=== PATIENT | male | born 1940 | race Caucasian/White ===

== ENCOUNTER 2017-03-07 16:42 | Emergency (ER) | payer MEDICARE, OTHER ==
--- NOTE | 2017-03-07 17:11 | ERNOTE ---
<LauraIldefonso - Last Filed: 03/07/17 19:16> Medical Problem HPI - Narrative Date of Service: 03/07/17 - General Chief Complaint: General Assessment Time Seen by Provider: 03/07/17 17:00 Source: patient, family Exam Limitations: no limitations - Immun/Allergies/Home Medications Allergies/Adverse Reactions: Allergies No Known Allergies Allergy (Verified 03/07/17 16:55) Home Medications: HOME MEDICATIONS Ferrous Sulfate 325 mg PO DAILY #30 tablet 03/07/17 [Last Taken Unknown] - History of Present History Narrative: Patient presents for progressive bilateral leg weakness. This has been progressive over several months but he also has been having progressive generalized weakness. He has had some constipation and took laxative and subsequently has been having some lose stool, no blood noted. No CP or SOB. No acute abdominal pain. He is more fatigued. His wonders if it is stress. He recently saw the Neurolgist for his leg weakness without clear cause Timing: constant, getting worse Severity: moderate Modifying Factors - (Improves): Present: rest Modifying Factors - (Worsens): Present: other - exertion Review of Systems - Review of Systems Constitutional: Absent: fever ENT: Absent: sore throat Respiratory: Absent: shortness of breath Cardiology: Absent: chest pain Gastrointestinal/Abdominal: Present: See HPI Genitourinary: Absent: dysuria Neurological: Present: See HPI All Other Systems: All systems neg except as marked - Patient's Past Medical History Patient History - Medical: No pertinent hx Patient History - Cardiac/Respiratory: No pertinent hx Patient History - Cancer: No Hx of Cancer Patient History - Surgical Procedures: Colonoscopy, Orthopedic Patient History - Other: None - Social History Living Situations: home Psych History: No pertinent hx Physical Exam - Physical Exam General Appearance: Present: alert, no apparent distress Head Exam: Present: normal inspection, no evidence of injury Eye Exam: Normal inspection: bilateral, PERRL: bilateral Ears, Nose, Throat: Present: normal ENT inspection Neck: Present: normal inspection Respiratory: Present: no respiratory distress, normal breath sounds, no accessory muscle use, lungs clear Cardiovascular/Chest: Present: regular rate, rhythm, normal peripheral pulses Gastrointestinal/Abdominal: Present: normal bowel sounds, nontender, nondistended, soft Rectal Exam: Absent: black stool, mass Extremity Exam: Present: normal inspection Neurological Exam: Present: alert, normal mood/affect, no motor/sensory deficits , 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 Absent: motor weakness Skin Exam: Present: normal color, warm/dry ED Progress - Results and Orders Patient's Lab Results:: I have reviewed the patient's lab results. - Vital Signs Patient's Vital Signs:: I have reviewed the patient's vital signs. Vital Signs: Vital Signs 03/07/17 16:47 Temperature 37.5 C Pulse Rate 60 Respiratory 16 Rate Blood Pressure 149/67 O2 Sat by Pulse 99 Oximetry - EKG EKG: NSR EKG read: Interp. by me EKG Comments: NSR rate 59. Non-specific changes, no STEMI. - X-Ray X-Ray #1 X-Ray: chest Interpretation: Interp. by me X-ray Comments: I reviewed CXR report per radiology - Progress/Reassessment Chief Complaint: General Assessment Progress Note-Subjective: 03/07/17 19:21 I spoke with the Hospitalist. They recommend IV fluids and repeat H&H. No gross blood in STACY. Pt agreeable. - Transfer of Care Physician Sign Out: Ildefonso Sanchez Receiving Physician: Buddy Goss Pending Results: Labs Departure - Departure Clinical Impression: Weakness Anemia Qualifiers: Anemia type: iron deficiency Iron deficiency anemia type: chronic blood loss Qualified Code(s): D50.0 - Iron deficiency anemia secondary to blood loss ( chronic) Constipation Qualifiers: Constipation type: slow transit constipation Qualified Code(s): K59.01 - Slow transit constipation Disposition: Home Follow Up Needed Condition: Stable Instructions: Anemia, Nonspecific Additional Instructions: try miralax one scoop daily in 8-10 ounces of water and adjust dose to have a soft formed stool daily. Take iron daily and follow up with Dr. Bazzi to follow up on your blood counts and have further work up on your anemia. Referrals: Siva Bazzi MD [Primary Care Provider] - Prescriptions: Ferrous Sulfate 325 mg PO DAILY #30 tablet <Buddy Goss - Last Filed: 03/13/17 22:45> ED Progress - Results and Orders Patient's Lab Results:: I have reviewed the patient's lab results. Results and Orders: Laboratory Tests 03/07/17 03/07/1703/07/17 17:18 17:18 18:37 WBC 4.9 Hgb 8.3 L Hct 28.5 L Plt Count 252 Sodium 140 Potassium 3.9 Chloride 105 Carbon Dioxide 24.1 BUN 13 Creatinine 1.16 Random Glucose 89 Calcium 8.5 Total Bilirubin 0.2 AST 19 ALT 26 Alkaline Phosphatase 108 Troponin I Less than 0.017 Total Protein 7.4 Albumin 3.0 L Lipase 152 Urine Color Urine Appearance Urine pH Ur Specific [place] Urine Protein Urine Glucose (UA) Urine Ketones Urine Blood Urine Nitrate Urine Bilirubin Urine Urobilinogen Ur Leukocyte Esterase Urine RBC Urine WBC Ur Epithelial Cells Urine Bacteria Urine Culture Comments Stool Occult Blood Positive H 03/07/17 03/07/17 18:58 21:08 WBC Hgb 8.3 L Hct 29.0 L Plt Count Sodium Potassium Chloride Carbon Dioxide BUN Creatinine Random Glucose Calcium Total Bilirubin AST ALT Alkaline Phosphatase Troponin I Total Protein Albumin Lipase Urine Color Yellow Urine Appearance Clear Urine pH 5.5 Ur Specific [place] <=1.005 Urine Protein Negative Urine Glucose (UA) Negative Urine Ketones Negative Urine Blood 25 H Urine Nitrate Negative Urine Bilirubin Negative Urine Urobilinogen Normal Ur Leukocyte Esterase 25 H Urine RBC 0-5 Urine WBC 0-5 Ur Epithelial Cells None seen Urine Bacteria Trace Urine Culture Comments Culture to follow Stool Occult Blood - Vital Signs Patient's Vital Signs:: I have reviewed the patient's vital signs. Vital Signs: Vital Signs 03/07/17 03/07/17 03/07/17 16:47 17:49 18:04 Temperature 37.5 C Pulse Rate 60 57 L 57 L Respiratory 16 16 16 Rate Blood Pressure 149/67 146/71 O2 Sat by Pulse 99 100 100 Oximetry 03/07/17 03/07/17 18:14 18:40 Temperature 36.8 C Pulse Rate 54 L 65 Respiratory 16 Rate Blood Pressure 146/71 O2 Sat by Pulse 100 Oximetry - Progress/Reassessment Progress Note-Subjective: 03/07/17 23:39 Spoke with the patient about stable lab values and need for OP evaluation
[2017-03-07 17:22] LABS: Hematocrit 28.5 % (42.0-52.0); Hemoglobin 8.3 gm/dL (13.5-18.0); Mean Cell Volume 67.5 fl (78-100); Mean Corpuscular Hemoglobin 19.7 pg (27-31); Mean Corpuscular Hgb Conc 29.1 g/dl (32-36); Mean Platelet Volume 9.6 fl (6.0-9.5); Neutrophil # 3.5 K/mm3 (1.3-6.0); Platelet Count 252 K/mm3 (150-450); Red Blood Count 4.22 M/mm3 (4.7-6.0); Red Cell Distribution Width 16.6 % (11.5-14.0); White Blood Count 4.9 K/mm3 (4.0-10.5)
[2017-03-07 17:49] LABS: ALT 26 U/L (19-67); AST 19 U/L (0-48); Alkaline Phosphatase * 108 U/L (50-170); Anion Gap 14.8 mmol/L (6.8-13.8); BUN/Creatinine Ratio 11.2 (9.0-21.6); Bilirubin, Total 0.2 mg/dL (0.0-1.1); Blood Urea Nitrogen 13 mg/dL (6-23); Calcium * 8.5 mg/dL (7.9-10.9); Carbon Dioxide 24.1 mmol/L (24-32.6); Chloride 105 mmol/L (97-106); Glucose * 89 mg/dL (70-110); Lipase 152 U/L (73-393); Potassium 3.9 mmol/L (3.4-4.6); Sodium 140 mmol/L (132-142); Total Protein 7.4 gm/dL (6.2-8.2); Troponin I Less than 0.017 ng/ml (0.00-0.10)
[2017-03-07 19:11] LABS: Urine Bilirubin Negative (NEGATIVE); Urine Blood 25 /ul (NEGATIVE); Urine Ketone Negative (NEGATIVE); Urine Nitrite Negative (NEGATIVE); Urine Protein Negative (NEGATIVE); Urine Specific Gravity <=1.005 SP.GR. (1.005-1.030); Urine Urobilinogen Normal (NORMAL); Urine pH 5.5 pH (5.0-7.0)
[2017-03-07] MEDS ORDERED: NORMAL SALINE 1,000 ML IV ONE (19:12)
[2017-03-07 19:21] LABS: Urine Appearance Clear; Urine Color Yellow
[2017-03-07 19:22] LABS: Urine Bacteria TRACE; Urine RBC 0-5 /hpf (0-5); Urine WBC 0-5 /hpf (0-5)
[2017-03-07 22:10] LABS: Hemoglobin 8.3 gm/dL (13.5-18.0)
[2017-03-07 23:30] VITALS: BP 144/72
== END 2017-03-07 23:50 | disposition home or self-care (01) ==
LOC: ER 16:42
DX: R53.1 Weakness (principal); D50.0 Iron deficiency anemia secondary to blood loss (chronic); K59.01 Slow transit constipation

== ENCOUNTER 2017-03-21 09:25 | Day surgery (SDC) | payer MEDICARE, OTHER ==
[~2017-03-21 09:25] MED LIST: RINGER'S SOLUTION,LACTATED 1,000 ML IV PRN
[2017-03-21] MEDS ORDERED: RINGER'S SOLUTION,LACTATED 1,000 ML IV ONE ×2 (10:08→12:10)
[2017-03-21] MEDS ORDERED: RINGER'S SOLUTION,LACTATED 1,000 ML IV PRN (12:27)
[2017-03-21 13:21] VITALS: BP 146/77
--- NOTE | 2017-03-21 19:10 | OR ---
Operative Report - Dictated Report Narrative: OPERATIVE REPORT DATE OF OPERATION: 03/21/2017 PREOPERATIVE DIAGNOSIS: Anemia POSTOPERATIVE DIAGNOSIS: Gastropathy with small benign appearing gastric ulcer (pathology and CLOtest pending) 3-5mm colon polyps at 105 cm, 130 cm, 95 cm, and 85 cm 3 (pathology pending) Large cecal tumor (pathology pending) OPERATION: Colonoscopy with biopsy of cecal tumor and hot forceps polypectomies 6 SURGEON: Jasbir Frye MD ANESTHESIA: JONATHAN Cortes CRNA INDICATIONS FOR PROCEDURE: The patient is a 76-year-old male referred by Dr Hagen. The patient recently presented to the emergency room with weakness, and he was found to have a drop in hemoglobin from 16 g in April 2016 to 8.3 g currently. There was lab evidence of iron deficiency. The patient has a history of 3 tubular adenomas removed on colonoscopy in 2006 at [facility]. He had a series of 2 colonoscopies in 2013 at the [facility] in [place]. 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 A subsequent colonoscopy later that year was reportedly normal. He has had some constipation but denies abdominal pain. FINDINGS: Area of benign appearing gastropathy with healing 2 mm ulcer ( pathology and CLOtest pending). Large cecal tumor with central necrosis and evidence of previous bleeding. 3-5mm areas of polypoid change at 105 cm, 130 cm , 95 cm, and 85 cm 3 (pathology pending) NARRATIVE OF PROCEDURE: The patient was identified in the holding area, and prior to the administration of anesthetic, a multidisciplinary timeout was observed. With the patient in the left lateral position and after the administration of intravenous sedation, the perineum was inspected. There was no evidence of pilonidal disease or skin breakdown. The external appearance of the anus was normal. Sphincter tone was good. The flexible fiberoptic colonoscope was inserted into the rectum which was insufflated with air. The rectal mucosa and submucosal vascular pattern appeared normal, the prep was seen to be complete. The scope was advanced through the sigmoid colon, up the descending colon, and around the splenic flexure where the triangular haustral architecture of the transverse colon was seen. The scope was advanced across the transverse colon, around the hepatic flexure to the cecum, where a large flat polypoid mass with central necrosis was identified. This had the gross appearance of adenocarcinoma. Biopsies were obtained. The area appeared hemostatic. The scope was then slowly withdrawn in a circular fashion so that all aspects of colonic mucosa were inspected. The colon was relatively normal in course and caliber. The haustral architecture appeared well preserved throughout with no evidence of external compression. The mucosa and submucosal vascular pattern appeared normal, specifically there was no gross evidence to suggest colitis or inflammatory bowel disease and no AV malformations were seen. There were several small diverticular openings identified. 3-5mm polyps were encountered at 105 cm, 130 cm, 95 cm, and 85 cm 3. These were biopsied and then thoroughly destroyed with electrocautery. All polypectomy sites were observed to be complete and hemostatic. The scope was gradually withdrawn to the level of the rectum. As much insufflated air as possible was removed. The scope was withdrawn from the patient and the procedure terminated. The patient tolerated the anesthetic and procedure well without complication and was transferred back to the ambulatory surgery area awake and in stable condition. The patient remained stable throughout a period of postoperative observation. He denied abdominal discomfort, was able to tolerate by mouth intake, and was up without assistance. I shared the operative findings with the patient and his , and he was given copies of the photographs which appear in the medical record. He was discharged home with instructions not to engage in hazardous activity today, but may resume normal activity tomorrow, and advance diet as tolerated. He is to continue those medications as listed in the history and physical exam. I made arrangements to contact him with the biopsy reports and will make additional recommendations for treatment and follow-up based upon those results. I did explain that the lesion in the cecum is most likely a cancer and will need to be resected. I discussed the case with Dr. Bazzi the patient's usual physician, and arrangements were made for him to have an appointment there for a preoperative evaluation. A separate appointment will be made for our office to discuss the surgery, arrange for the date and give the patient prep instructions. Reviewed and electronically signed
--- NOTE | 2017-03-22 13:21 | OR ---
Operative Report - Dictated Report Narrative: Operative Report Date of operation: 03/21/2017 Preoperative diagnosis: Anemia Postoperative diagnosis: Areas of gastropathy with 2 mm ulceration (pathology and CLOtest pending) Operation: EGD with biopsies (this procedure done in conjunction with concomitant colonoscopy) Surgeon: Dr Frye Anesthesia: JONATHAN WASSERMAN CRNA Indications for procedure: The patient is a 76-year-old male referred by Dr Hagen for upper and lower endoscopy to evaluate iron deficiency anemia. Findings: Patch of nonspecific benign appearing gastropathy with focal 2 mm ulceration (pathology and CLOtest pending) Narrative of procedure: The patient was identified preoperatively, and prior to the administration of anesthetic a multidisciplinary timeout was observed With the patient in the recumbent position, a bite-block was placed, intravenous sedation administered, and the patient's eyes covered with a towel. The flexible fiberoptic gastroscope was advanced into the posterior pharynx which appeared normal. The supraglottic larynx appeared normal. The cords appeared normal, moved well, and opposed in the midline. The scope was advanced under direct vision into the proximal esophagus which appeared normal. The esophagus appeared freely distensible with normal mucosa. The esophageal mucosa appeared normal down to the gastroesophageal junction which was sharp and noninflamed. The GE junction appeared normally distensible. The scope was advanced into the stomach which was insufflated with air. Although the majority of gastric mucosa appeared normal, there were 2 areas of marked erythema on gastric body folds with a 2 mm area of focal healing ulceration. A retroflex view of the gastric fundus revealed no additional lesions. The pylorus appeared patent. The scope was advanced into the duodenal bulb which appeared normal. The scope was advanced further to the horizontal portion of the duodenum which appeared normal, specifically the villous architecture appeared well preserved and clear bile was present. The scope was slowly withdrawn through the duodenal bulb with confirmation that no active ulcer was present. The scope was withdrawn into the stomach and community relations representative biopsies of the inflamed areas of gastric mucosa were obtained for CLOtest and pathology. The biopsy sites were seen to be hemostatic. The insufflated air was removed , the scope withdrawn from the patient, and this portion of the procedure terminated. Please see the separate dictation of the colonoscopy ADDENDUM: Sol-test was negative and biopsy showed focally denuded benign reactive gastropathy/chemical gastritis Reviewed and electronically signed
== END 2017-03-21 09:26 | disposition home or self-care (01) ==
LOC: AMB 09:25
PROVIDERS: ATTEND Surgery
PROC: 0DB68ZX Excision of Stomach, Via Natural or Artificial Opening Endoscopic, Diagnostic (ICD-10-PCS; 2017-03-21)
PROC: 0DBE8ZX Excision of Large Intestine, Via Natural or Artificial Opening Endoscopic, Diagnostic (ICD-10-PCS; principal; 2017-03-21 11:00)
PROC: 0DBH8ZX Excision of Cecum, Via Natural or Artificial Opening Endoscopic, Diagnostic (ICD-10-PCS; 2017-03-21 11:00)
DX: Z12.11 Encounter for screening for malignant neoplasm of colon (principal); D49.0 Neoplasm of unspecified behavior of digestive system; K63.5 Polyp of colon; K25.9 Gastric ulcer, unspecified as acute or chronic, without hemorrhage or perforation; I10 Essential (primary) hypertension; E78.5 Hyperlipidemia, unspecified; D64.9 Anemia, unspecified; Z87.891 Personal history of nicotine dependence; Z68.28 Body mass index [BMI] 28.0-28.9, adult; K29.70 Gastritis, unspecified, without bleeding

== ENCOUNTER 2017-04-16 09:38 | Inpatient (IN) | payer MEDICARE, OTHER ==
[~2017-04-16 09:38] MED LIST changes: +CEFOXITIN SODIUM 2 GM in DEXTROSE 5 % IN WATER 100 ML IV PRN
[2017-04-16] MEDS ORDERED: PROMETHAZINE HCL 12.5 MG in DEXTROSE 5 % IN WATER 50 ML IV PRN ×2 (12:12)
[2017-04-16] MEDS ORDERED: diphenhydrAMINE HCL 50 MG/ML VIAL IV PRN (12:12)
[2017-04-16] MEDS ORDERED: ONDANSETRON HCL/PF 2 MG/ML VIAL IV PRN (12:12)
[2017-04-16] MEDS ORDERED: RINGER'S SOLUTION,LACTATED 1,000 ML IV ONE ×4 (13:23→15:15)
--- NOTE | 2017-04-16 16:34 | OR ---
Anesthesia Procedure Note - Anesthesia Procedure Note Date of Service: 04/16/17 Narrative: Vital Signs - Last Taken Temp 36.8 C 04/16/17 16:25 Pulse 55 L 04/16/17 16:25 Resp 14 04/16/17 16:25 BP 122/62 04/16/17 16:25 Pulse Ox 98 04/16/17 16:25 O2 Oxygen Delivery Method Nasal Cannula 04/16/17 16:30 ANESTHESIA PROCEDURE NOTE Date of Procedure: 04/16/2017. Time of procedure: 1220. Performed by: Ilan Arvizu CRNA Hosiery Mater: None. Preprocedure diagnosis: Colon resection, thoracic epidural for postop analgesia. Post procedure diagnosis: Same. Procedure: Insertion of thoracic epidural for postoperative analgesia. Indications: The patient is a 76 -year-old male for colon resection surgery, requesting epidural for postoperative pain management. Findings: See below. Details of the procedure: The patient was placed in a sitting position. DuraPrep as well as Betadine swabs X3 was applied to the patient's back. Patient was then draped in a sterile fashion. Lidocaine 1% was infiltrated to the skin and subcutaneous tissues at the level of the T8-9 interspace. The epidural space was identified using a 18-gauge Tuohy needle with loss-of- resistance technique. Epidural catheter was inserted to a depth of 9 centimeters at skin. Negative test dose was elicited using 3 mL of 1.5% preservative-free lidocaine plus epinephrine 1 200,000. The epidural catheter was then taped and secured in place. EBL: Minimal. Fluids: N/A. Specimen: N/A. Post procedure condition: The patient tolerated the procedure well. No complications were noted. Thank you for this consultation. Ilan Arvizu CRNA
[2017-04-16] MEDS: PANTOPRAZOLE SODIUM 40 MG in NORMAL SALINE 100 ML IV SCH (17:48)
[2017-04-16] MEDS: RINGER'S SOLUTION,LACTATED 1,000 ML IV PRN (18:16)
--- NOTE | 2017-04-16 18:37 | OR ---
Operative Report - Dictated Report Narrative: OPERATIVE REPORT DATE OF OPERATION: 04/16/17 PREOPERATIVE DIAGNOSIS: Adenocarcinoma of the cecum POSTOPERATIVE DIAGNOSIS: Same (pathology pending) OPERATION: Right colon resection SURGEON: Jasbir Frye MD ANESTHESIA: Gen. endotracheal/epidural Ilan Arvizu CRNA INDICATIONS FOR PROCEDURE: The patient is a 76-year-old male who underwent EGD and colonoscopy on 03/21/2017. He was found to have a large neoplastic lesion in the cecum which was biopsied. Pathology revealed adenocarcinoma (low-grade, moderately differentiated). He has undergone an outpatient laxative and antibiotic bowel prep and is brought for right colon resection. FINDINGS: Tumor in the cecum, completely resected. No gross disease in the liver NARRATIVE OF PROCEDURE: The patient was identified preoperatively and prior to the administration of anesthetic a multidisciplinary timeout was observed. The patient was placed supine, SCDs were applied, and 2 g of intravenous Ancef administered. A satisfactory level of epidural anesthetic was achieved. The patient was then placed supine and general endotracheal anesthetic administered. A nasogastric tube and Mchugh catheter were placed at the beginning of the case. The patient's abdomen was prepped with Betadine solution in the midline outlined with 4 sterile towels. The remainder of the patient was covered with a sterile disposable drape a midline incision was made skirting to the right of the umbilicus. Dissection was carried through subcutaneous tissue with electrocautery until the fascia of the linea alba was identified. This was incised. The peritoneum was then elevated and incised to allow entry into the abdomen under direct vision. Manual and visual exploration of the abdomen was then performed. The liver was smooth to palpation. The NG tube was palpated to be in good position in the stomach. There was a firm mass in the cecum. The omentum appeared grossly normal. A Buckwalter self-retaining retractor was placed and the cecum exposed. The lateral peritoneal reflection was incised with cautery and the ascending colon mobilized medially by blunt dissection. The posterior aspect of the apex of the cecum and appendix were densely adherent to the posterior lateral abdominal wall, however this area could be eventually mobilized by dividing the attachments under direct vision with electrocautery. At this juncture the apex of the cecum and terminal ileum could be mobilized to the midline. The ascending colon was then followed up to the hepatic flexure which was mobilized by electrocautery dissection. A point was chosen in the transverse colon for division. The area was freed of omentum using a LigaSure. The abdominal incision was then protected with clean towels. The bowel was then delivered onto the anterior abdominal wall for division. The terminal ileum and transverse colon were transected with a WAYLON stapling device. The transected ends were treated with Betadine. The wedge of intervening mesentery was then developed by LigaSure division down to the right colic artery which was separately ligated with a 0 chromic tie. The specimen was then passed to the back table. The mesentery was then inspected for hemostasis which appeared complete. The right gutter appeared clean. The transected terminal ileum and transverse colon were placed in a doml-oe-nsap fashion and secured with interrupted serosal sutures of 3-0 silk. Enterotomies were made in the antimesenteric ends of the staple lines, and a functioning side to side anastomosis was created with a WAYLON stapling device. The interior of the anastomosis was inspected and found to be hemostatic and of good caliber. The common enterotomy was then closed with a single application of the TA 60. The staple line was treated with Betadine. The cynthia appeared gas and liquid tight and the anastomosis was of good caliber. The resulting mesenteric defect was then obliterated with a running suture of 2-0 chromic. The anastomosed bowel was then placed in the right lateral abdomen and covered with the omentum. After receiving a correct sponge needle and instrument count attention was turned to closing the abdomen. The fascia and peritoneum were approximated with a single layer of interrupted sutures of antibiotic containing #1 Vicryl. The skin was approximated with cynthia. The operative site was washed and dried. A dressing of Bactroban ointment, folded 4 x 4's, and Medipore tape was applied. The operative procedure was terminated at this point. The patient tolerated the anesthetic and procedure well without complication. Estimated blood loss was less than 50 ML. The patient received 1600 mL of LR. He had 100 mL of urine output. The resected right colon was submitted to pathology . The patient was transferred to the recovery room awake , extubated, and in stable condition Reviewed in electronically signed
[2017-04-16] MEDS: CEFOXITIN SODIUM 1 GM in DEXTROSE 5 % IN WATER 100 ML IV SCH ×2 (18:56)
[2017-04-16] MEDS: ENOXAPARIN SODIUM 30 MG/0.3 ML SYRG SC SCH (22:23)
[2017-04-17] MEDS: CEFOXITIN SODIUM 1 GM in DEXTROSE 5 % IN WATER 100 ML IV SCH ×4 (02:06→06:43)
[2017-04-17] MEDS: RINGER'S SOLUTION,LACTATED 1,000 ML IV PRN ×3 (02:09→19:59)
[2017-04-17 06:08] LABS: Anion Gap 11.9 mmol/L (6.8-13.8); BUN/Creatinine Ratio 6.2 (9.0-21.6); Calcium * 7.9 mg/dL (7.9-10.9); Carbon Dioxide 24.9 mmol/L (24-32.6); Potassium 3.8 mmol/L (3.4-4.6)
--- NOTE | 2017-04-17 11:25 | PN ---
Subjective - Date and Time Seen Date: 04/17/17 Time: 11:23 Subjective Narrative: Patient denies complications related to general anesthetic and thoracic epidural. Patient's pain appears to be well-controlled and is using his patient controlled epidural when needed. Objective - Review of Systems Generalized/Overall Review: Reports: No Symptoms Reported - Vitals Vitals: Last Vital Signs Temp 37.7 C H 04/17/17 11:11 Pulse 63 04/17/17 11:11 Resp 18 04/17/17 11:11 BP 104/47 04/17/17 11:11 Pulse Ox 96 04/17/17 11:11 - Abnormal Lab Findings Abnormal Lab Findings: Abnormal Lab Results 04/17/17 Range/Units 05:30 Chloride 107 H (97-106) mmol/L Est GFR (Non-Af Amer) 57 L (60-130) mL/min BUN/Creatinine Ratio 6.2 L (9.0-21.6) - Exam Constitutional: Present: Alert, Oriented x3, Cooperative, No distress Extremity: Present: normal range of motion Cauti Physician Documentation - Urinary Catheter Management Urethral (Mchugh) Date of Insertion: 04/16/17 Time of Insertion: 13:00 Assessment/Plan Plan Narrative: Continue epidural at current rate.
[2017-04-17] MEDS: ROPIVACAINE HCL/PF 250 MG, fentaNYL CITRATE/PF 250 MCG in NORMAL SALINE 220 ML EP SCH ×2 (11:34→23:55)
[2017-04-17] MEDS: PANTOPRAZOLE SODIUM 40 MG in NORMAL SALINE 100 ML IV SCH (16:05)
--- NOTE | 2017-04-17 18:48 | PN ---
Dictated Progress Note - Date and Time Seen: Date: 04/17/17 Time: 18:45 - second viit - Progress Note Narrative: Vital Signs - Last Taken Temp 36.8 C 04/17/17 15:02 Pulse 68 04/17/17 15:02 Resp 20 04/17/17 15:02 BP 152/70 04/17/17 15:02 Pulse Ox 92 04/17/17 15:02 Abnormal/Pending Laboratory Last 24 HRS 04/17/17 05:30 Chloride 107 H Est GFR (Non-Af Amer) 57 L BUN/Creatinine Ratio 6.2 L POD #1 Right colon resection VS have been normal Pain controlled with epidural. Has been OOB. Dressing dry. Poor cough due to pain but showed how to splint. Hugo bloated earlier but not now. Not much via NG. Will encourage pulmonary toilet. Encourage OOB. Cycle clamp NG with some liquids. spencer out in AM
[2017-04-17] MEDS: ENOXAPARIN SODIUM 30 MG/0.3 ML SYRG SC SCH (21:20)
[2017-04-18] MEDS: RINGER'S SOLUTION,LACTATED 1,000 ML IV PRN ×2 (03:40→19:34)
--- NOTE | 2017-04-18 10:59 | PN ---
Subjective - Date and Time Seen Date: 04/18/17 Time: 10:58 Subjective Narrative: Patient denies complications related to thoracic epidural. Pain appears to be well-controlled. Objective - Vitals Vitals: Last Vital Signs Temp 36.2 C L 04/18/17 10:12 Pulse 65 04/18/17 10:12 Resp 18 04/18/17 10:12 BP 136/73 04/18/17 10:12 Pulse Ox 97 04/18/17 10:12 - Exam Constitutional: Present: Alert, Oriented x3, Cooperative, No distress Extremity: Present: normal range of motion Cauti Physician Documentation - Urinary Catheter Management Urethral (Mchugh) Date of Insertion: 04/16/17 Time of Insertion: 13:00 Assessment/Plan Plan Narrative: Continue thoracic epidural at current rate. Will discontinue epidural tomorrow.
[2017-04-18] MEDS: ROPIVACAINE HCL/PF 250 MG, fentaNYL CITRATE/PF 250 MCG in NORMAL SALINE 220 ML EP SCH (14:17)
[2017-04-18] MEDS: PANTOPRAZOLE SODIUM 40 MG in NORMAL SALINE 100 ML IV SCH (16:36)
--- NOTE | 2017-04-18 17:52 | PN ---
Dictated Progress Note - Date and Time Seen: Date: 04/18/17 Time: 17:49 - Progress Note Narrative: Vital Signs - Last Taken Temp 36.5 C 04/18/17 14:33 Pulse 75 04/18/17 14:33 Resp 18 04/18/17 14:33 BP 152/65 04/18/17 14:33 Pulse Ox 96 04/18/17 14:33 POD#2 Right colon resection VS normal. Pain tolerable. Has not voided since spencer out but not uncomfortable and wants to try on his own. Using coronet and walking. Pathology back pT3, pN0--relayed to patient. Will cath if becomes uncomfortable. Epidural out in AM
[2017-04-18] MEDS: ENOXAPARIN SODIUM 30 MG/0.3 ML SYRG SC SCH (21:26)
[2017-04-19] MEDS: RINGER'S SOLUTION,LACTATED 1,000 ML IV PRN ×4 (02:15→23:22)
[2017-04-19] MEDS: ROPIVACAINE HCL/PF 250 MG, fentaNYL CITRATE/PF 250 MCG in NORMAL SALINE 220 ML EP SCH (07:02)
[2017-04-19] MEDS: oxyCODONE HCL/ACETAMINOPHEN 1 TAB TABLET PO PRN ×2 (12:11→22:55)
[2017-04-19] MEDS: PANTOPRAZOLE SODIUM 40 MG in NORMAL SALINE 100 ML IV SCH (16:25)
[2017-04-19] MEDS ORDERED: BISACODYL 5 MG TABLET.DR PO ONE (21:47)
[2017-04-19] MEDS ORDERED: BISACODYL 10 MG SUPP.RECT RC ONE (21:47)
[2017-04-19] MEDS: ENOXAPARIN SODIUM 30 MG/0.3 ML SYRG SC SCH (22:25)
[2017-04-20] MEDS: oxyCODONE HCL/ACETAMINOPHEN 1 TAB TABLET PO PRN (07:28)
[2017-04-20] MEDS: RINGER'S SOLUTION,LACTATED 1,000 ML IV PRN (07:33)
--- NOTE | 2017-04-20 07:51 | PN ---
Subjective - Date and Time Seen Date: 04/20/17 Time: 08:00 Objective - Vitals Vitals: Last Vital Signs Temp 36.9 C 04/20/17 06:29 Pulse 58 L 04/20/17 06:29 Resp 14 04/20/17 06:29 BP 146/67 04/20/17 06:29 Pulse Ox 94 04/20/17 06:29 POD #4 Right colon resection VS normal. Large amount of flattus and feels less distended. OOB well. Incision clean and healing well. Pain better. Will encourage OOB. d/c NG. Advance diet tonight if tolerated. Cauti Physician Documentation - Urinary Catheter Management Urethral (Mchugh) Date of Insertion: 04/16/17 Time of Insertion: 13:00
--- NOTE | 2017-04-20 07:57 | PN ---
Dictated Progress Note - Date and Time Seen: Date: 04/19/17 Time: 08:00 - Progress Note Narrative: Vital Signs - Last Taken Temp 36.9 C 04/19/17 07:34 Pulse 58 L 04/19/17 07:34 Resp 14 04/19/17 07:34 BP 146/67 04/19/17 07:34 Pulse Ox 94 04/19/17 07:34 POD #3 Right colon resection VS remain normal. Pain controlled with epidural. Has been OOB. No flattus "almost". Dressing dry. Voiding well without spencer. Active BS Will d/c epidural today and start po Percocet. Encourage ambulation. Dulcolax.
[2017-04-20] MEDS: PANTOPRAZOLE SODIUM 40 MG in NORMAL SALINE 100 ML IV SCH (16:49)
[2017-04-20] MEDS: ENOXAPARIN SODIUM 30 MG/0.3 ML SYRG SC SCH (21:14)
[2017-04-21] MEDS: oxyCODONE HCL/ACETAMINOPHEN 1 TAB TABLET PO PRN ×2 (14:01→18:49)
[2017-04-21 14:21] VITALS: BP 128/58
[2017-04-21] MEDS: PANTOPRAZOLE SODIUM 40 MG in NORMAL SALINE 100 ML IV SCH (16:00)
--- NOTE | 2017-04-21 17:57 | DS ---
(1) Adenocarcinoma of colon Problem: Acute Description of Stay: He underwent right colon resection on 04/16/17. Pathology revealed pT3, pN0 tumor. VTE prophylaxis with SCD's and lovenox. Pre and post operative IV Mefoxin. Epidural catheter and NG for 3 days. His VS remained normal , pain was controlled, incision appeared clean and healing well. Return of bowel function, NG discontinued and he tolerated advanced diet. By POD#5 his VS were normal, OOB independently and tolerating regular diet. Home with no lifting, Rx for Percocet, change dressing daily, RTC 04/24-06/01. Procedures Performed: see notes below - right colon resection Discharge Disposition: Home self care Disposition: Home self-care Condition: Good Discharge Activity: Activity as tolerated, No Lifting Referrals: Siva Bazzi MD [Primary Care Provider] - Problem Oriented Discharge Instructions to Patient/Family: Open Colectomy, Care After Additional Patient Instructions (free text): to call the office for f/u apt with Dr Frye 04/25 or 04/26/17 Complete Home Medications List: Complete Home Medication List: Ferrous Sulfate 325 mg PO DAILY #30 tablet 03/07/17 Ergocalciferol (Vitamin D2) [Vitamin D2] 50,000 unit PO Q7D 03/20/17 Polyethylene Glycol 3350 [Miralax] 17 gm PO DAILY PRN 03/20/17 Acetaminophen [Tylenol Arthritis] 1,300 mg PO Q8H PRN 04/04/17 oxyCODONE HCL/ACETAMINOPHEN [Percocet 5 MG/325 MG] 2 tab PO Q4H PRN #0 tablet
== END 2017-04-21 19:15 | disposition home or self-care (01) | DRG 331 ==
LOC: MS 09:38
PROVIDERS: ADMIT Surgery; ATTEND Surgery
PROC: 0DTK0ZZ Resection of Ascending Colon, Open Approach (ICD-10-PCS; principal; 2017-04-16 11:45)
DX: C18.0 Malignant neoplasm of cecum (principal); D50.9 Iron deficiency anemia, unspecified; L40.9 Psoriasis, unspecified

== ENCOUNTER 2018-09-05 05:13 | Inpatient (IN) ==
[2018-09-05] MEDS ORDERED: CEFOXITIN SODIUM 2 GM in DEXTROSE 5 % IN WATER 100 ML IV PRN ×2 (06:00)
--- NOTE | 2018-09-05 08:42 | ANES ---
Anesthesia Pre Procedure Eval Vitals/Labs: Last Vital Signs Temp 36.5 C 09/05/18 06:31 Pulse 54 L 09/05/18 06:31 Resp 16 09/05/18 06:31 BP 108/65 09/05/18 06:31 Pulse Ox 98 09/05/18 06:31 HOME MEDICATIONS Acetaminophen [Tylenol Arthritis] 1,300 mg PO Q8H PRN 04/04/17 [Last Taken Unknown] aspirin 81 mg tablet,delayed release 81 mg PO DAILY 03/08/18 [Last Taken 09/01/18] cholecalciferol (vitamin D3) 2,000 unit capsule 2,000 unit PO DAILY 03/08/18 [Last Taken 09/01/18] clobetasol 0.05 % topical cream 1 applic TP BID 03/08/18 [Last Taken 09/01/18] losartan 50 mg tablet 50 mg PO DAILY #90 tab 07/04/18 [Last Taken 09/05/18 03:30] sertraline 50 mg tablet 50 mg PO DAILY #30 tab 07/04/18 [Last Taken 09/01/18] Allergies/Adverse Reactions: Allergies Allergy/AdvReac Type Severity Reaction Status Date / Time No Known Allergies Allergy Verified 09/05/18 06:39 - Planned Procedure Planned Procedure: Colon resection Medication List Reviewed:: Yes Allergies Verified: Yes Medical History (Last Reviewed 09/05/18 @ 08:40 by Shailesh Oneal CRNA) Psoriasis (Chronic) Onset Date: Unknown Iron deficiency anemia (Resolved) Onset Date: ~03/27/17 Erectile dysfunction (Chronic) Onset Date: ~09/25/06 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 Benign reactive gastropathy/ chemical gastritis. H/O shoulder surgery Onset Date: ~1992 Left History of colon resection Onset Date: 04/16/17 [facility]agan-right. Adenocarcinoma -all margins negative. 0/22 nodes involved. History of incision and drainage Onset Date: 12/18/08 Dr. Aguayo- I&D of septic proximal interphalangeal joint. Hx of colonoscopy Onset Date: 09/02/18 09/02/18 Bagan-carcinoma [facility]- adenocarcinoma, tubular adenoma x 4, serrated adenoma. 2014 x3; [facility] 11/01/06 [facility]- tubular adenoma x3, hyperplastic polyp x1. Loss of teeth due to extraction Onset Date: Unknown Family History (Last Reviewed 09/05/18 @ 08:40 by Shailesh Oneal CRNA) Father , age 93-suicide Depression Cancer Suicide Mother , age 83-unknown cause Hypertension Sister , age 16-congenital heart defect Congenital heart defect Brother Multiple sclerosis Sister Alive and well - Family Anesthesia History Family History:: no untoward family reactions to anesthesia, no familial bleeding tendencies, no family history of clotting disorders, no family history of premature - Airway/Neck/Teeth Denture Type: Full upper, Full lower Neck Exam: full range of motion Mallampatti Score: 2 Thyromental (T-M) distance: > 6 cm Mandibulo Hyoid distance: > 3 cm - Respiratory Respiratory Physical: lungs clear Smoking Status: Former smoker Sleep Apnea currently treated: No Sleep Apnea by current assessment: No - Cardiovascular Cardiac History: hypertension, hyperlipidemia Tolerate Activity: Fair Heart Sounds: S1 & S2, Regular - Anesthesia Assessment and Plan ASA Class: PS, III Anesthesia Type Plan: General ET, Epidural - Thoracic for post op pain relief Planned difficult intubation/equipment available: No
[2018-09-05] MEDS: RINGER'S SOLUTION,LACTATED 1,000 ML IV PRN ×5 (09:09→18:01)
[2018-09-05] MEDS ORDERED: ONDANSETRON HCL/PF 2 MG/ML VIAL IV PRN (09:47)
[2018-09-05] MEDS ORDERED: MUPIROCIN 22 APPL TUBE TP ONE (14:20)
--- NOTE | 2018-09-05 14:46 | ANES ---
Anesthesia Procedure Note Procedure Note: ANESTHESIA PROCEDURE NOTE Date of Procedure: 09/05/2018 Time of procedure: 0900. Performed by: Shailesh Oneal CRNA, MSN Quality Improvement Specialist: Nicolle Everett RN. Preprocedure diagnosis: Status post abdominal surgery pain relief. Post procedure diagnosis: Same. Procedure:Epidural for postop analgesia. Indications: Post abdominal surgery pain. Findings: See below. Details of the procedure: The patient was placed on the side of the OR table in sitting position and prepped with DuraPrep then draped in a sterile fashion. Lidocaine 1% was infiltrated to the skin and subcutaneous tissues at the level of the T6 7 interspace. An 18-gauge Touhy needle was used to approach the epidural space with loss of resistance technique. Once loss of resistance was achieved the epidural catheter was then threaded approximately 4 cm in the epidural needle was removed. The catheter was taped in place and after careful aspiration 3 mL of 1.5% lidocaine with 1-200,000 epinephrine was injected without change in heart rate or sensorium. . EBL: Minimal. Fluids: Lactated Ringer's drooping. Specimen: N/A. Post procedure condition: The patient tolerated the procedure well. No complications were noted. Shailesh Oneal CRNA, MSN
--- NOTE | 2018-09-05 15:06 | ANES ---
Post Anesthesia Assessment - Vital Signs Vitals: Last Vital Signs Temp 37.3 C 09/05/18 14:35 Pulse 81 09/05/18 14:55 Resp 18 09/05/18 14:55 BP 126/62 09/05/18 14:55 Pulse Ox 96 09/05/18 14:55 Airway Patency: Normal - Mental Status Level Of Consciousness: Awake, Alert, Appropriate - Pain Level Pain Score: 0 - N/V Assessment Nausea/Vomiting Presence: None Dehydration:: No
--- NOTE | 2018-09-05 15:06 | ANES ---
Post Anesthesia Discharge - Transfer of Care Transfer of Care handoff given to nurse: Yes - Discharge from PACU Discharge from PACU when meets criteria: Yes - Awake and comfortable
[2018-09-05] MEDS: CEFOXITIN SODIUM 1 GM in DEXTROSE 5 % IN WATER 100 ML IV SCH ×4 (15:50→22:24)
--- NOTE | 2018-09-05 17:48 | OR ---
Operative Report - Dictated Report Narrative: OPERATIVE REPORT DATE OF OPERATION: 09/05/2018 PREOPERATIVE DIAGNOSIS: Recurrent adenocarcinoma of the colon POSTOPERATIVE DIAGNOSIS: Recurrent adenocarcinoma of the colon (pathology pending) OPERATION: Resection of recurrent adenocarcinoma at the small bowel/colon anastomosis SURGEON: Jasbir Frye MD ANESTHESIA: Epidural/general endotracheal, Shailesh Oneal CRNA INDICATIONS FOR PROCEDURE: The patient is a 78-year-old male who in April 2017 underwent a right colon resection for pT3, pN0 adenocarcinoma of the cecum. He underwent surveillance colonoscopy on 08/02/2018 with the findings of recurrent tumor at the anastomosis. He has undergone an outpatient mechanical and antibiotic bowel prep and is brought for resection. FINDINGS: Tumor recurrence adjacent to the ileocolic anastomosis with involvement of the mesentery, adherence to the sigmoid colon, and palpable tumor deposit in the right lobe of the liver. NARRATIVE OF PROCEDURE: The patient was identified preoperatively and prior to the administration of anesthetic a multidisciplinary timeout was observed. The patient was placed supine SCDs were applied and intravenous sedation administered. An epidural was catheter was placed, he was returned to the supine position and general endotracheal anesthetic administered. A nasogastric tube was placed. A Mchugh catheter was placed. The patient's abdomen was prepped with Betadine solution in the midline outlined with 4 sterile towels. The remainder the patient was covered with a sterile disposable drape. A midline skin incision was made skirting to the right of the umbilicus. Dissection was carried through subcutaneous tissue until the attenuated fascia was encountered. This was elevated and incised to allow entry into the abdomen under direct vision. The space above the umbilicus was clear. Below the umbilicus there were small bowel adhesions to the anterior abdominal wall. These were gradually freed by scissor dissection allowing the incision to be completed. Manual and visual exploration of the abdomen was then performed. The nasogastric tube was felt to be in good position within the stomach. The Mchugh bulb was palpable within the bladder. There was a firm tumor mass in the right lateral abdomen in the expected position of the ileocolic anastomosis. A Bookwalter self-retaining retractor was placed. The greater omentum was gradually freed from the right lateral abdominal wall and reflected cephalad revealing the transverse colon which was traced into the right upper abdomen where the medial side of the previous stapled ileocolic anastomosis was identified. Next the peritoneal reflection on the right side was developed by blunt and electrocautery dissection to allow retraction of the greater omentum and the area of anastomosis medially. The root of the small bowel mesentery supplying the old anastomosis contained a firm mass which was also densely adherent to the apex of a long loop of sigmoid colon. The sigmoid colon was gradually freed by scissor dissection, inspected and found to be intact, and packed inferiorly. The terminal ileum was then traced proximally and small bowel adhesions were liberated to allow a full 15 cm of freed bowel proximal to the old anastomosis. A point was chosen in the mid transverse colon well distal to the old anastomosis. The lesser sac was then entered and the transverse colon mesentery developed allowing the entire specimen to be swept to the midline. At this juncture the right side of the abdomen was irrigated with saline and suctioned clean. The right lobe of the liver could be palpated and a tumor deposit was felt. The right half of the greater omentum covering the specimen and adherent along the right lateral peritoneal reflection was liberated under direct vision and then removed using a LigaSure device. It was submitted as a separate specimen. At this juncture the area did appear to be resectable. Points were then chosen in the terminal ileum and the transverse colon for transection. The incision was protected with towels. The terminal ileum was transected with a WAYLON stapling device. The transected bowel ends were treated with free Betadine. The transverse colon was then transected with a WAYLON stapling device. The transected ends were treated with free Betadine. The small bowel mesentery was addressed first. It was serially transected with a LigaSure device down to the base of the mesentery. Next the transverse mesocolon was transected by serial application of the LigaSure device down to the base of the specimen. The specimen was then delivered, passed to the back table and submitted to pathology. The transected small bowel mesentery and colon mesentery appeared hemostatic. The transected small bowel and colon were then placed in a side to side fashion and secured with a serosal suture of 3-0 GI silk. Enterotomies were made in the antimesenteric ends of the staple lines and a functioning side to side anastomosis created with a WAYLON stapling device. The interior of the anastomosis was inspected and found to be hemostatic and of good caliber. The common enterotomy was then closed with a TA 60 stapling device. The staple line was inverted with a 3-0 GI silk suture. The anastomosis was found to be gas and liquid tight with free passage of stripped material between the small and large intestine. The mesenteric defect was then closed with a running suture of 3-0 chromic. After receiving a correct sponge needle and instrument count attention was turned to closing the abdomen. The abdomen was irrigated with saline, suctioned clean and hemostasis was assured. The sigmoid colon and small intestine were inspected, replaced anatomically, and covered with the remnant of greater omentum. The peritoneum and fascia were closed with a single continuous suture of 0 PDS. Subcutaneous tissues were irrigated with saline and the skin was secured with cynthia. The operative site was washed and dried. A dressing of Bactroban ointment and folded 4 x 4's was a pplied. The operative procedure was terminated at this point. The patient tolerated the anesthetic and procedure well without complication. There was less than 50 mL blood loss. The patient received 3600 mL of IV LR with 250 mL urine output. The patient was transferred to the recovery room extubated, awake, and in stable condition. Reviewed and electronically signed
[2018-09-06] MEDS: CEFOXITIN SODIUM 1 GM in DEXTROSE 5 % IN WATER 100 ML IV SCH ×2 (02:49)
[2018-09-06] MEDS: RINGER'S SOLUTION,LACTATED 1,000 ML IV PRN ×3 (02:52→20:48)
--- NOTE | 2018-09-06 08:19 | PN ---
Dictated Progress Note - Date and Time Seen: Date: 09/06/18 Time: 08:19 - 2 visits today - Progress Note Narrative: Vital Signs - Last Taken Temp 36.5 C 09/06/18 06:25 Pulse 54 L 09/06/18 06:25 Resp 16 09/06/18 06:25 BP 103/50 09/06/18 06:25 Pulse Ox 94 09/06/18 06:25 Culture 09/05/18 07:40 - Final Nares MRSA Negative POD#1 VS normal, pain tolerable, min. NG output, adequate U/O. Events with NG, TENNIS DIRECTOR noted. Has been OOB. No bowel activity. Dressing CDI Will encourage pulmonary toilet. Add Protonix
[2018-09-06] MEDS: BUPIVACAINE HCL/0.9 % NACL/PF 250 ML EP PRN (08:24)
[2018-09-06] MEDS: PANTOPRAZOLE SODIUM 40 MG in NORMAL SALINE 100 ML IV SCH (18:14)
[2018-09-07] MEDS: RINGER'S SOLUTION,LACTATED 1,000 ML IV PRN ×3 (05:39→23:12)
[2018-09-07] MEDS: BUPIVACAINE HCL/0.9 % NACL/PF 250 ML EP PRN (08:45)
--- NOTE | 2018-09-07 09:19 | PN ---
Dictated Progress Note - Date and Time Seen: Date: 09/07/18 Time: 09:17 - Progress Note Narrative: Vital Signs - Last Taken Temp 37.4 C 09/07/18 08:00 Pulse 60 09/07/18 08:00 Resp 18 09/07/18 08:00 BP 111/58 09/07/18 08:00 Pulse Ox 93 09/07/18 08:00 Culture 09/05/18 07:40 - Final Nares MRSA Negative POD#2 Small bowel/colon resection for recurrent Adenocarcinoma VS normal, pain tolerable more when up. No bowel movement but minimal NG output. Using IS and clear sputum. Dressing dry. U/O good Will encourage OOB, IS, clamp NG and allow clear liquids
[2018-09-07] MEDS: PANTOPRAZOLE SODIUM 40 MG in NORMAL SALINE 100 ML IV SCH (17:28)
[2018-09-08] MEDS: RINGER'S SOLUTION,LACTATED 1,000 ML IV PRN (07:29)
--- NOTE | 2018-09-08 10:48 | PN ---
Dictated Progress Note - Date and Time Seen: Date: 09/08/18 Time: 10:46 - Progress Note Narrative: Vital Signs - Last Taken Temp 36.9 C 09/08/18 06:45 Pulse 69 09/08/18 06:45 Resp 20 09/08/18 06:45 BP 156/73 H 09/08/18 06:45 Pulse Ox 98 09/08/18 06:45 POD#3 small bowel/colon resection VS normal, BP slightly elevated. Pain tolerable. Tolerated NG clamping and passed flatus. u/O good. Dressing dry Will D/c NG and spencer, encourage OOB. Epidural removal per Anesthesia. Restart Losartan and use po pain med
[2018-09-08] MEDS: LOSARTAN POTASSIUM 50 MG TABLET PO SCH (11:35)
[2018-09-08] MEDS: oxyCODONE HCL/ACETAMINOPHEN 1 TAB TABLET PO PRN (15:28)
[2018-09-08] MEDS: PANTOPRAZOLE SODIUM 40 MG in NORMAL SALINE 100 ML IV SCH (17:34)
[2018-09-09] MEDS: oxyCODONE HCL/ACETAMINOPHEN 1 TAB TABLET PO PRN ×2 (05:31→17:30)
[2018-09-09] MEDS: LOSARTAN POTASSIUM 50 MG TABLET PO SCH (08:13)
--- NOTE | 2018-09-09 14:55 | PN ---
Subjective - Date and Time Seen Date: 09/09/18 Time: 14:49 Subjective Narrative: POD#4 Small bowel/colon resection for recurrent adenocarcinoma of colon Objective - Review of Systems Generalized/Overall Review: Denies: Chills, Fever EENTM: Reports: No Symptoms Reported Respiratory: Reports: Cough, Other - breathing better, using IS Cardiac: Denies: Chest Pain, Palpitations Abdominal: Reports: Other - incisional discomfort, controlled with Percocet Passing gas, no BM Genitourinary Symptoms: Reports: No Symptoms Reported Musculoskeletal Complaints: Reports: No Symptoms Reported Neurological: Reports: No Symptoms Reported Skin: Reports: No Symptoms Reported Misc: All systems neg except as marked - Vitals Vitals: Last Vital Signs Temp 36.6 C 09/09/18 14:09 Pulse 57 L 09/09/18 14:09 Resp 16 09/09/18 14:09 BP 126/55 09/09/18 14:09 Pulse Ox 95 09/09/18 14:09 - Exam Constitutional: Present: Alert, Oriented x3, Cooperative, No distress ENT Exam: Present: normal ENT inspection Neck: Present: full range of motion Respiratory: Present: lungs clear Cardiovascular/Chest: Present: regular rate, rhythm, no edema Abdomen: Present: soft, nontender, other - incision healing well, no erythema /Rectal: Present: Exam deferred Extremity: Present: normal range of motion, normal inspection, no pedal edema, no calf tenderness Skin Exam: Present: normal color Neurologic: Present: director of strategic alliances II-XII nml as tested, no motor/sensory deficits Appearance: Present: appropriate appearance, appropriate insight Eye contact: Present: cooperative, good eye contact Thoughts: Present: normal thought pattern Cauti Physician Documentation - Urinary Catheter Management Urethral (Mchugh) Date of Insertion: 09/05/18 Time of Insertion: 09:25 Date of Removal: 09/08/18 Time of Removal: 11:30 Assessment/Plan - Problems/Diagnosis (1) Hypertension Problem: Chronic Qualifiers: Hypertension type: essential hypertension Qualified Code(s): I10 - Essential (primary) hypertension (2) Adenocarcinoma Problem: Acute Narrative: Will advance diet, encourage ambulation. Possibly home tomorrow Awaiting final pathology
[2018-09-09] MEDS: PANTOPRAZOLE SODIUM 40 MG in NORMAL SALINE 100 ML IV SCH (17:20)
[2018-09-10] MEDS: oxyCODONE HCL/ACETAMINOPHEN 1 TAB TABLET PO PRN ×2 (00:10→08:38)
[2018-09-10] MEDS: LOSARTAN POTASSIUM 50 MG TABLET PO SCH (08:38)
--- NOTE | 2018-09-10 13:37 | DS ---
(1) Hypertension Problem: Chronic Qualifiers: Hypertension type: essential hypertension Qualified Code(s): I10 - Essential (primary) hypertension (2) Adenocarcinoma Problem: Acute Description of Stay: He underwent an uncomplicated small bowel/colon resection for recurrent adenocarcinoma at the previous small bowel/colon anastomosis. At the time of this dictation the pathology report is not back. He had an epidural/general anesthetic which he tolerated well. Nasogastric tube and Mchugh catheter were placed. The operative chlorhexidine wash and IV Mefoxin were utilized. VTE prophylaxis was accomplished with SCDs and early ambulation. Post operatively his vital signs remained normal. His pain was initially controlled with epidural catheter and later with by mouth Percocet. His incision appeared to be clean and healing well. He was maintained on NG suction until return of bowel function. His Mchugh catheter was removed on the second postoperative day. He tolerated advance diet and was passing gas and moving his bowels. He was out of bed without assistance and his pain was controlled with by mouth Percocet. He was discharged home with instructions not to lift and not to drive. He is to change his dressing daily or as needed. He was given a prescription for Percocet 5/325 mg #30. He is to resume his lisinopril. He has numbers to call for questions or concerns and a return office appointment was made for 1 week. Procedures Performed: see notes below - small bowel/colon resection Results and Findings: Lab Pending Results 09/05/18 14:30: Pathology Specimen Spec to path Discharge Location: Home Disposition: Home self-care Condition: Good Discharge Activity: Activity as tolerated, No Lifting Discharge Diet: General/regular food Referrals: Siva Bazzi MD [Primary Care Provider] - Problem Oriented Discharge Instructions to Patient/Family: Exploratory Laparotomy, Adult Additional Patient Instructions (free text): to return to office on 09/20/18 Prescriptions (Any new or edited meds): oxyCODONE HCL/ACETAMINOPHEN [Percocet 5 MG/325 MG] 2 tab PO Q6H PRN #30 tab PRN Reason: Pain Complete Home Medications List: Complete Home Medication List: Acetaminophen [Tylenol Arthritis] 1,300 mg PO Q8H PRN 04/04/17 aspirin 81 mg tablet,delayed release 81 mg PO DAILY 03/08/18 cholecalciferol (vitamin D3) 2,000 unit capsule 2,000 unit PO DAILY 03/08/18 clobetasol 0.05 % topical cream 1 applic TP BID 03/08/18 losartan 50 mg tablet 50 mg PO DAILY #90 tab 07/04/18 sertraline 50 mg tablet 50 mg PO DAILY #30 tab 07/04/18 oxyCODONE HCL/ACETAMINOPHEN [Percocet 5 MG/325 MG] 2 tab PO Q6H PRN #30 tab 09/10/18
[2018-09-10 13:49] VITALS: BP 133/64
== END 2018-09-10 14:35 | disposition home or self-care (01) | DRG 330 ==
LOC: MS 05:13
PROVIDERS: ADMIT Surgery; ATTEND Surgery
CPT/HCPCS: 71010; 71045; 87081; 88309